=== PATIENT | male | born 1980 | race Caucasian/White ===

== ENCOUNTER 2021-04-05 05:48 | Day surgery (SDC) | payer BC, MEDICARE ==
[2021-03-31 15:10] LABS: BASOPHILS % (AUTO) 0.3 % (0-1); EOSINOPHILS % (AUTO) 0.5 % (0-6); LYMPHOCYTES # (AUTO) 2.2 X10'3 (1.1-4.8); MEAN CORPUSCULAR VOLUME 88.4 FL (78-98); MEAN PLATELET VOLUME 8.4 FL (7.4-10.4); MONOCYTES # (AUTO) 0.7 X10'3 (0-0.9); MONOCYTES % (AUTO) 7.4 % (2-12); NEUTROPHILS % (AUTO) 66.8 % (42-75); PRE OP HEMATOCRIT 45.8 % (42.0-52.0); PRE OP HEMOGLOBIN 15.6 g/dL (14.0-17.9); PRE OP PLATELET COUNT 288 X10'3 (140-440); RED BLOOD COUNT 5.18 X10'6 (4.70-6.10)
[2021-03-31 15:39] LABS: ALBUMIN 4.1 G/DL (3.4-5.0); ALBUMIN/GLOBULIN RATIO 1.1 (1.1-1.5); ALKALINE PHOSPHATASE 89 IU/L (46-116); BLOOD UREA NITROGEN 15 MG/DL (7-18); BUN/CREATININE RATIO 10.9 (5.4-32.0); CALCIUM 9.1 MG/DL (8.5-10.1); CHLORIDE 104 MMOL/L (99-107); CREATININE 1.37 MG/DL (0.60-1.10); PRE OP ALT 25 U/L (30-65); PRE OP ANION GAP 5 (8-16); PRE OP AST 9 U/L (10-37); PRE OP BILIRUB, TOTAL 0.3 MG/DL (0.0-1.0); PRE OP GLUCOSE 99 MG/DL (70-104); PRE OP POTASSIUM 3.8 MMOL/L (3.4-5.1); PRE OP SODIUM 139 MMOL/L (135-145); TOTAL CARBON DIOXIDE 29.7 MMOL/L (24-32); TOTAL PROTEIN 7.8 G/DL (6.4-8.2); eGFR 57 ML/MIN
[~2021-04-05] VITALS: Ht 180.3 cm; Wt 86.0 kg
[2021-04-05] VITALS (8 sets, daily range): BP systolic 111–139; BP diastolic 74–93
[~2021-04-05 05:48] MED LIST: NO HOME MEDS; cefazolin/dext.iso 2gm/100ml IV ONE; famotidine 20mg tablet PO ONE; ringers solution, lacted 1,000 ML IV SCH
[2021-04-05] MEDS ORDERED: BUPIVAcaine/PF 2.5 mg/ml (0.25%) 30ml vial ONE (07:06)
[2021-04-05] MEDS ORDERED: LIDOcaine 1% 30ml preserv. free vial ONE (07:06)
[2021-04-05] MEDS ORDERED: labetalol 20mg/4ml (5mg/ml) syringe IV PRN (07:15)
[2021-04-05] MEDS ORDERED: fentaNYL/PF 50MCG/1 ML 2ML syringe IV PRN ×2 (07:15)
[2021-04-05] MEDS ORDERED: hydrALAZINE 20mg/ml inj. IV PRN (07:15)
[2021-04-05] MEDS ORDERED: morphine 4 MG/ML inj SYRINge IV PRN (07:15)
[2021-04-05] MEDS ORDERED: proCHLORperazine 10 MG/2 ml inj IV PRN (07:15)
[2021-04-05] MEDS ORDERED: ringers solution, lacted 1,000 ML IV SCH (07:15)
[2021-04-05] MEDS ORDERED: ondansetron/PF 4mg/2ml inj IV PRN (07:15)
[2021-04-05] MEDS ORDERED: morphine 2 MG/ML inj. syringe IV PRN (07:15)
[2021-04-05] MEDS ORDERED: midazolam 1 mg/ML 2ml injection ONE (07:25)
[2021-04-05] MEDS ORDERED: fentaNYL/PF 50MCG/1 ML 2ML syringe ONE (07:25)
[2021-04-05] MEDS ORDERED: ondansetron/PF 4mg/2ml inj ONE (07:26)
[2021-04-05] MEDS ORDERED: glycopyrrolate 0.2mg/ml inj ONE (07:26)
[2021-04-05] MEDS ORDERED: neostigmine methylsulfate 1 MG/ML 10ml vial ONE (07:26)
[2021-04-05] MEDS ORDERED: dexamethasone sod phosphate 4mg/ml inj. ONE (07:26)
[2021-04-05] MEDS ORDERED: propofol inj 20 ML IV ONE (07:26)
[2021-04-05] MEDS ORDERED: rocuronium 10mg/ml inj IV ONE (07:26)
[2021-04-05] MEDS ORDERED: LIDOcaine 2% (20mg/ml) 5ml vial ONE (07:26)
[2021-04-05] MEDS ORDERED: sevoflurane 250ml liquid IH ONE (07:28)
[2021-04-05] MEDS ORDERED: labetalol 20mg/4ml (5mg/ml) syringe IV ONE (08:03)
--- NOTE | 2021-04-05 08:50 | NUR ---
ADMITTED TO PACU FROM OR ACCOMPANIED BY ANESTHESIA. INTIAL PHYSICAL ASSESSMENT DONE AND RECORDED. REPORT RECEIVED FROM ANESTHESIA.
[2021-04-05] MEDS ORDERED: oxyCODONE/APAP 5-325mg tablet PO PRN ×2 (09:00)
--- NOTE | 2021-04-05 10:00 | NUR ---
DISCHARGE CRITERIA MET, DISCHARGE INSTRUCTIONS GIVEN, DEMONSTRATES VERBAL UNDERSTANDING. DISCHARGED HOME IN GOOD CONDITION.
== END 2021-04-05 10:00 | disposition home or self-care (01) ==
LOC: PAS 05:48
PROVIDERS: ATTEND Surgery
DX: K40.90 Unilateral inguinal hernia, without obstruction or gangrene, not specified as recurrent (principal); N18.30 Chronic kidney disease, stage 3 unspecified; Z20.822 Contact with and (suspected) exposure to COVID-19; Z79.899 Other long term (current) drug therapy; Z98.890 Other specified postprocedural states; Z88.5 Allergy status to narcotic agent; Z88.8 Allergy status to other drugs, medicaments and biological substances; Z72.89 Other problems related to lifestyle
CPT/HCPCS: 36415; 49650; 80053; 82948; 85025; 93005; C1781; J1100; J2001; J2250; J2270; J2405; J2704; J2710; J3010; J3490; S2900; U0003; U0005; A4215; A4618; J7120

== ENCOUNTER 2025-07-23 16:06 | Outpatient (CLI) | payer MEDICARE ==
[~2025-07-23 16:06] MED LIST changes: -cefazolin/dext.iso 2gm/100ml IV ONE; -famotidine 20mg tablet PO ONE; -ringers solution, lacted 1,000 ML IV SCH
--- NOTE | 2025-07-24 04:56 | RADIOLOGY REPORT ---
CLINICAL INDICATION: PAIN IN RIGHT SHOULDER COMPARISON: None TECHNIQUE: Multiplanar, multisequence MRI of the right shoulder was performed without contrast. Contrast: None FINDINGS: Glenohumeral joint: There is no fracture or bone marrow edema. Alignment is maintained. No focal articular cartilage defect. There is no joint effusion or synovitis. Acromioclavicular joint: The acromioclavicular joint is narrowed with capsular hypertrophy. There is a type II acromion. Rotator cuff and bursae: Supraspinatus T2 hyperintensity and thickening reflecting tendinosis. There is infraspinatus tendinosis. No rotator cuff tear. Subscapularis and teres minor tendons are intact. There is no regional muscle atrophy. There is trace fluid in the subacromial subdeltoid bursa. Biceps tendon and glenoid labrum: The long head biceps tendon is located within the bicipital groove and intact. There are bone anchors in the glenoid with susceptibility artifact, suggestive of a prior labral repair. Please correlate with surgical history. The posterior segments of the glenoid labrum are blunted suggestive of prior tear and repair. The anterior inferior and superior labrum are also blunted and hyperintense which may suggest tear or significant degeneration. IMPRESSION: 1. Supraspinatus and infraspinatus tendinosis. No rotator cuff tear in the right shoulder. 2. AC joint arthrosis. 3. Evidence of prior posterior labral repair. 4. Blunted anterior superior and anterior inferior labral segments which may suggest chronic tear or degeneration. 5. Mild subacromial subdeltoid bursitis.
== END 2025-07-23 23:59 | disposition home or self-care (01) ==
LOC: MRI02 16:06
PROVIDERS: ATTEND Family Medicine
DX: M75.101 Unspecified rotator cuff tear or rupture of right shoulder, not specified as traumatic (principal); M25.511 Pain in right shoulder
CPT/HCPCS: 73221